=== PATIENT | male | born 1965 | race Caucasian/White ===

== ENCOUNTER → 2016-12-07 | Outpatient (CLI) | payer BC ==
--- NOTE | 2016-12-07 23:18 | XR ---
EXAMINATION TYPE: XR lumbar spine 2 or 3V DATE OF EXAM: 12/07/2016 COMPARISON: NONE HISTORY: 51-year-old male with low back pain for 2 months TECHNIQUE: 3 views FINDINGS: 5 lumbar type vertebral bodies. There is facet arthropathy in the mid to lower lumbar spine with mild multilevel endplate spondylosis. Very mild disc space narrowing at L5-S1. Alignment is maintained. V ertebral body heights are preserved. IMPRESSION: Facet arthropathy mid to lower lumbar spine. Mild multilevel degenerative disc disease. No vertebral compression collapse or malalignment.
== END | disposition home or self-care (01) ==
LOC: RADXRMAIN 19:21
PROVIDERS: ATTEND Family Medicine
DX: M51.36 Other intervertebral disc degeneration, lumbar region (principal); M46.86 Other specified inflammatory spondylopathies, lumbar region
CPT/HCPCS: 72100

== ENCOUNTER 2017-10-19 10:36 | Day surgery (SDC) | payer BC ==
[2017-10-17 09:24] VITALS: BMI 26.6
--- NOTE | 2017-10-19 07:09 | P.GSHP ---
History of Present Illness H&P Date: 10/19/17 CHIEF COMPLAINT: Inguinal hernia, left HISTORY OF PRESENT ILLNESS: The patient is a 52-year-old male who presents with a history of swelling and pain along the left groin. He's noted increased swelling including pain of the area. Now he presents for repair of his inguinal hernia. PAST MEDICAL HISTORY: Please see list. PAST SURGICAL HISTORY: Please see list. MEDICATIONS: Please see list. ALLERGIES: Please see list. SOCIAL HISTORY: No illicit drug use FAMILY HISTORY: No reports of Crohn disease or ulcerative colitis. REVIEW OF ORGAN SYSTEMS: CONSTITUTIONAL: No reports of fevers or chills. No reports of weight loss despite prior attempts. GI: Denies any blood in stools or constipation. PHYSICAL EXAM: VITAL SIGNS: Stable GENERAL: Well-developed pleasant male in no acute distress. HEENT: No scleral icterus. Extraocular movements grossly intact. Moist buccal mucosa. NECK: Supple without lymphadenopathy. CHEST: Unlabored respirations. Equal bilateral excursions. CARDIOVASCULAR: Regular rate and rhythm. Distal 2+ pulses. ABDOMEN: Soft, nondistended. No peritoneal signs. Palpable defect of the left groin. MUSCULOSKELETAL: No clubbing, cyanosis, or edema. ASSESSMENT: 1. Inguinal hernia, left PLAN: 1. Recommend proceeding with a robotic inguinal repair with mesh with possible bilateral approach. 2. Benefits and risks of surgical intervention was discussed including possibility of open technique. 3. DVT prophylaxis. 4. Antibiotic prophylaxis. Past Medical History Past Medical History: No Reported History History of Any Multi-Drug Resistant Organisms: None Reported Past Surgical History: Tonsillectomy Additional Past Surgical History / Comment(s): HYDROCELE REPAIR Past Anesthesia/Blood Transfusion Reactions: No Reported Reaction Smoking Status: Former smoker - Past Family History Father Family Medical History: Cancer Additional Family Medical History / Comment(s): ADRENAL GLAND CANCER Medications and Allergies Home Medications Medication Instructions Recorded Confirmed Type Atorvastatin [Lipitor] 20 mg PO DAILY 10/17/17 10/17/17 History Multivitamin [Men's Multi-Vitamin] 1 each PO DAILY 10/17/17 10/17/17 History [place]-3 Fatty Acids/Fish Oil [Fish 1 each PO DAILY 10/17/17 10/17/17 History Oil 1,000 mg Softgel] Allergies Allergy/AdvReac Type Severity Reaction Status Date / Time No Known Allergies Allergy Verified 10/17/17 08:52
[~2017-10-19 10:36] MED LIST: DEXAMETHASONE SOD PHOSPHATE 10 MG/ML 1 ML VIAL IV ONE; HEPARIN SODIUM,PORCINE 5,000 UNIT/ML 1 ML VIAL SQ ONE; IBUPROFEN IV 400 MG in SODIUM CHLORIDE 0.9% 250 ML IV ONE; LIDOCAINE 1% 20 ML VIAL (10MG/ML) FOR IV START INTRADERMA PRN; MIDAZOLAM 2 MG/2 ML VIAL IV PRN; ONDANSETRON 4 MG/2 ML VIAL IVP ONE; SCOPOLAMINE 1.5MG/72HR PATCH TRANSDERM ONE; ceFAZolin IN SWFI 2 GM/20 ML SYRINGE IVP ONE
[2017-10-19] MEDS: LACTATED RINGERS 1,000 ML IV SCH (11:28)
[2017-10-19] MEDS ORDERED: LIDOCAINE 1% INJ 10MG/ML (20 ML MDV) ONE (13:39)
[2017-10-19] MEDS ORDERED: SUCCINYLCHOLINE CHLORIDE 100 MG/5 ML SYR IV ONE (13:39)
[2017-10-19] MEDS ORDERED: fentaNYL (PF) 50 MCG/ML 2 ML AMP ONE (13:39)
[2017-10-19] MEDS ORDERED: PROPOFOL 10 MG/ML 20 ML VIAL IV ONE (13:39)
[2017-10-19] MEDS ORDERED: NEOSTIGMINE 1 MG/ML 10 ML VIAL ONE (13:39)
[2017-10-19] MEDS ORDERED: GLYCOPYRROLATE 0.2 MG/ML 2 ML VIAL ONE (13:39)
[2017-10-19] MEDS ORDERED: MIDAZOLAM 2 MG/2 ML VIAL ONE (13:39)
[2017-10-19] MEDS ORDERED: ROCURONIUM BROMIDE 10 MG/ML 10 ML VIAL IV ONE (13:39)
[2017-10-19] MEDS ORDERED: BUPIVACAINE (PF) 0.5% 30 ML VIAL SQ ONE (13:56)
--- NOTE | 2017-10-19 14:53 | P.PCN ---
Date of Procedure: 10/19/17 Preoperative Diagnosis: Left inguinal hernia Postoperative Diagnosis: Left direct inguinal hernia with lipoma Procedure(s) Performed: Excision of left inguinal lipoma, robotic repair of left inguinal hernia direct with mesh Anesthesia: CEZAR, local Surgeon: Aicha Russell Estimated Blood Loss (ml): 5 Pathology: other (Left inguinal hernia sac with lipoma) Condition: stable Disposition: same day Operative Findings: Left inguinal hernia with large fatty lipoma excised. Mesh repair performed. No recurrence noted along the right groin.
[2017-10-19] MEDS ORDERED: TAMSULOSIN 0.4 MG CAP.ER.24H PO STA ×2 (14:54→20:30)
[2017-10-19 15:35] VITALS: TEMP 97.2
[2017-10-19] MEDS: HYDROmorphone 0.5 MG/0.5 ML SYRINGE IVP PRN ×2 (15:40→15:45)
[2017-10-19] MEDS ORDERED: KETOROLAC 30 MG/ML 1 ML VIAL IVP ONE (16:06)
[2017-10-19] MEDS ORDERED: LACTATED RINGERS 1,000 ML IV ONE ×2 (16:12)
[2017-10-19 16:53] VITALS: RESP 18
[2017-10-19 18:00] VITALS: PULSE 88
[2017-10-19 18:25] VITALS: BP 144/88
--- NOTE | 2017-10-19 20:31 | P.PN ---
Progress Note - Text Progress Note Date: 10/19/17 I am notified the patient has trouble urinating. Double dose of Flomax recommended. Straight cath. May be discharged home. Flomax for 5 days at home. Strict instructions to return to the ER if unable to void in 8+ hrs.
[2017-10-19] MEDS ORDERED: TAMSULOSIN 0.4 MG CAP.ER.24H PO ONE (20:46)
--- NOTE | 2017-10-21 22:52 | P.OP ---
Date of Procedure: 10/19/17 Description of Procedure: SURGEON: MOIZ ESTES MD PREOPERATIVE DIAGNOSES: 1. History of right hydrocelectomy 2. Left inguinal pain 3. Hyperlipidemia POSTOPERATIVE DIAGNOSES: 1. History of right hydrocelectomy 2. Left inguinal pain 3. Hyperlipidemia 4. Left direct inguinal hernia with lipoma OPERATION: 1. Robotic assisted da [employer] [facility] laparoscopic left inguinal hernia repair with ventralight ST mesh, 11.4 cm. 2. Excision of left inguinal lipoma Anesthesia: GETA, local Estimated Blood Loss (ml): 5 Pathology: other (Left inguinal hernia sac with lipoma) Condition: stable Disposition: same day COMPLICATIONS: None. Operative Findings: 1. Left inguinal hernia with large fatty lipoma excised. 2. Mesh repair performed. No recurrence noted along the right groin. 3. Console time 24 minutes INDICATIONS: The patient is a 52-year-old gentleman who presents with history of left groin hernia. Now he presents for definitive surgical intervention. Laparoscopic versus open and robotic approaches were discussed. Benefits and risks including bleeding, infection, and injury to the vas deferens as well as sterility and chronic groin pain were reviewed. Placement of mesh was also described. Informed consent was obtained. DESCRIPTION: In the preoperative area, the patient was marked with indelible marker along the left groin. The patient was brought to the operating room and initially laid in supine position. After general induction, the abdomen had been prepped and draped in standard sterile fashion. Ioban draping was also placed. Prior to incision, a timeout protocol was confirmed with surgical team regarding patient's name including procedures to be performed and location along the left groin. Initial positioning for the robotic assisted ports were selected whereby 20 cm superior to the target anatomy, 0 degree 5 mm laparoscopic trocar entry was performed at the left upper quadrant. The abdomen was insufflated to 15 mmHg which he had tolerated well. Diagnostic laparoscopy demonstrated left inguinal hernia. Next, along the epigastrium, 8 mm robot trocar was placed. An 8-mm robotic trocar was placed under direct visualization at the right upper quadrant. The 5 mm port was exchanged for an 8 mm trocar. All trocars were positioned 8 to 10-cm apart from each other. The [employer] robot was primed, draped, prepared for docking along the left side of the patient. I then went to the kabuku console. The legislative assistant was at bedside for exchange of the robot arms and equipment. At the left groin, 2 cm direct inguinal hernia was identified. The hernia sac was evaginated whereby the peritoneum was scored using Endo scissors with cautery. Once completely reduced into the abdominal cavity, a lipoma was identified. The sac and lipoma was resected and then passed off for further pathological analysis. The size of the hernia defect was 3 cm with intraoperative films obtained. Using a 2-0 VLOC, the peritoneal defect of the left inguinal hernia site was closed using a pursestring suture. The defect was found to be completely closed with complete reduction of the left inguinal hernia was confirmed. As an onlay, an 11.[address] mesh by [employer] was cut in half and entered into the abdominal cavity via the 8 mm trocar. The mesh was tacked to the pelvis using 2-0 VLOC x 9-inch length sutures. The robot was undocked from the patient's bedside. I then rescrubbed into the case. Insufflation was released from the abdominal cavity and all instruments were removed from the abdominal cavity. Additional palm pressure was applied along the left groin as well as releasing any air along the scrotum and left groin. The rest of incisions were reapproximated using 4-0 Monocryl in a running subcuticular fashion. Local anesthetic was placed along the incision including for a groin block. Incisions were cleansed using dilute hydrogen peroxide. Liquid glue was applied to the skin. At the end of the procedure, the needle, sponge and instrument counts had been verified correct by the surgical services tech. The patient had tolerated the procedure well and was taken to the postanesthesia care unit in stable condition.
== END 2017-10-19 20:58 | disposition home or self-care (01) ==
LOC: OR 10:36
PROVIDERS: ATTEND Surgery Plastic and Reconstructive Surgery
DX: K40.90 Unilateral inguinal hernia, without obstruction or gangrene, not specified as recurrent (principal); E78.5 Hyperlipidemia, unspecified; G89.29 Other chronic pain; D17.6 Benign lipomatous neoplasm of spermatic cord; Z87.891 Personal history of nicotine dependence; Z79.899 Other long term (current) drug therapy
CPT/HCPCS: 88302; 49650; C1781; J2250; J1644; J1100; J2710; J2405; J2001; J3010; J1885; J0330; J2704; J1170; J0690

== ENCOUNTER → 2024-02-13 | Outpatient (CLI) | payer BC ==
--- NOTE | 2024-02-13 07:57 | MR ---
EXAMINATION TYPE: MR Prostate wo/w con DATE OF EXAM: 02/13/2024 7:25 AM COMPARISON: None. CLINICAL INDICATION: Male, 59 years old with history of R97.20 PSA ELEVATED; Elevated PSA TECHNIQUE: Multi-planar, multi-sequence imaging of the pelvis is performed prior to and following the uncomplicated administration of bolus intravenous gadolinium. CONTRAST: 8 Gadavist Interpretive Criteria: PI-RADS v2.1 SERUM PSA: -24 = 5.8 5- = 3.5 SURGICAL PATHOLOGY: No data available. FINDINGS: Prostatic dimensions: 5.0 x 7.0 x 5.8 cm. Ellipsoid Volume:106.29 (PSA density=0.05 ng/mL/mL) CENTRAL GLAND (Central and Transition Zones/CZ+TZ): Multiple bilateral, heterogenous appearing hypertrophic stromal nodules, without suspicious lesion. M edian lobe hypertrophy with protrusion into the base of the bladder. (PI-RADS 2) PERIPHERAL ZONE (PZ): Bilateral linear, indistinct wedgelike areas of low ADC, and low T2 signal, No evidence of masslike a bnormality, or localized perfusional hypervascularity, to further suggest a focus of clinically signi ficant prostate cancer. (PI-RADS 2) SEMINAL VESICLES (SV): Symmetric and unremarkable. PERIPROSTATIC TISSUES: Unremarkable. LYMPH NODES: No enlarged pelvic lymph node. REMAINING PELVIS: Bladder wall is within normal limits given distention. No abnormal free or organized intrapelvic fluid collection. No pathologic bowel dilation or mural thickening. No hernia visualized Small bilateral hydroceles. OSSEOUS STRUCTURES: No suspicious osseous abnormality. IMPRESSION: 1. No specific features for high-risk prostate cancer. Maximum PI-RADS score: 2. 2. Substantial BPH, estimated gland volume 106.29 mL. 3. No suspicious osseous lesion. No lymphadenopathy. No evidence of prostate adenocarcinoma involving the periprostatic tissues. [facility], , 02/13/2024 7:54 AM
== END ==
LOC: RADMRIMAIN 06:32
PROVIDERS: ATTEND Urology
DX: R97.20 Elevated prostate specific antigen [PSA] (principal)
CPT/HCPCS: 72197

== ENCOUNTER 2024-08-22 17:57 | Observation (INO) | payer BC ==
--- NOTE | 2024-08-22 18:39 | ED ---
General Adult HPI - General Chief complaint: Chest Pain Stated complaint: chest pain Time Seen by Provider: 08/22/24 18:12 Source: patient, RN notes reviewed, old records reviewed Mode of arrival: ambulatory Limitations: no limitations - History of Present Illness Initial comments: 59-year-old presenting for evaluation of chest pain intermittent over the past several days to weeks. Patient has central chest pain. He had an episode yesterday evening where this pain radiated to bilateral shoulders. This was while the patient was walking and was relieved by rest. He has no prior history of CAD. He is a non-smoker. He does have family history of premature coronary artery disease. Chest pain is minimal at the time my evaluation. No associated vomiting or diaphoresis. - Related Data Home Medications Medication Instructions Recorded Confirmed Atorvastatin [Lipitor] 20 mg PO DAILY 10/17/17 10/19/17 Multivitamin [Men's Multi-Vitamin] 1 each PO DAILY 10/17/17 10/19/17 [place]-3 Fatty Acids/Fish Oil [Fish 1 each PO DAILY 10/17/17 10/19/17 Oil 1,000 mg Softgel] Previous Rx's Medication Instructions Recorded HYDROcodone/APAP 5-325MG [[place] 1 tab PO Q4HR PRN 3 Days #18 tab 10/19/17 5-325] Tamsulosin [Flomax] 0.4 mg PO DAILY #7 cap 10/19/17 Allergies Allergy/AdvReac Type Severity Reaction Status Date / Time No Known Allergies Allergy Verified 08/22/24 18:02 Review of Systems ROS Statement: Those systems with pertinent positive or pertinent negative responses have been documented in the HPI. ROS Other: All systems not noted in ROS Statement are negative. Past Medical History Past Medical History: No Reported History History of Any Multi-Drug Resistant Organisms: None Reported Past Surgical History: Tonsillectomy Additional Past Surgical History / Comment(s): HYDROCELE REPAIR Past Anesthesia/Blood Transfusion Reactions: No Reported Reaction Past Psychological History: No Psychological Hx Reported Smoking Status: Never smoker Past Alcohol Use History: Rare Past Drug Use History: None Reported - Past Family History Father Family Medical History: Cancer Additional Family Medical History / Comment(s): ADRENAL GLAND CANCER General Exam Limitations: no limitations General appearance: alert, in no apparent distress Head exam: Present: atraumatic, normocephalic Eye exam: Present: normal appearance, PERRL ENT exam: Present: normal exam Neck exam: Present: normal inspection. Absent: tenderness, meningismus Respiratory exam: Present: normal lung sounds bilaterally. Absent: respiratory distress, wheezes Cardiovascular Exam: Present: regular rate, normal rhythm GI/Abdominal exam: Present: soft. Absent: distended, tenderness, guarding Extremities exam: Present: normal inspection, normal capillary refill Neurological exam: Present: alert, oriented X3, CN II-XII intact. Absent: motor sensory deficit Psychiatric exam: Present: normal affect, normal mood Skin exam: Present: warm, dry, intact. Absent: cyanosis, diaphoretic Course Vital Signs 08/22/24 08/22/24 08/22/24 18:00 18:02 18:36 Temperature 97.6 F Pulse Rate 70 66 Respiratory 18 20 20 Rate Blood Pressure 172/99 146/86 O2 Sat by Pulse 98 98 Oximetry - Reevaluation(s) Reevaluation #1: 08/22/24 19:49 Patient reevaluated, chest pain-free Medical Decision Making - Medical Decision Making Was pt. sent in by a medical professional or institution (, PA, SHIPPING AND RECEIVING COORDINATOR, urgent care, hospital, or retirement...) When possible be specific @ -No Did you speak to anyone other than the patient for history (EMS, parent, family, police, friend...)? What history was obtained from this source @ -No Did you review nursing and triage notes (agree or disagree)? Why? @ -I reviewed and agree with nursing and triage notes Were old charts reviewed (outside hosp., previous admission, EMS record, old EKG, old radiological studies, urgent care reports/EKG's, retirement records)? Report findings @ -No old charts were reviewed M differential chest pain EKG interpreted by me (3pts min.). @Sinus rhythm rate of 72, ME interval 190, QRS duration 90, QTc 420, no ST segment elevation. X-rays interpreted by me (1pt min.). @ -Chest x-ray is negative for acute cardiopulmonary findings, normal mediastinum, no pneumothorax, no consolidated pneumonia CT interpreted by me (1pt min.). @ -None done U/S interpreted by me (1pt. min.). @ -None done What testing was considered but not performed or refused? (CT, X-rays, U/S, labs)? Why? @ -None What meds were considered but not given or refused? Why? @ -None Did you discuss the management of the patient with other professionals (professionals i.e. , PA, SHIPPING AND RECEIVING COORDINATOR, lab, RT, psych nurse, delinquency prevention social worker, erecting crane operator, te acher, aoc operations intelligence officer, assistant case manager)? Give summary @ -Delia covering for [facility] 59-year-old male with exertional chest pain relieved by rest. Patient did have an episode that was Was smoking cessation discussed for >3mins.? @ -No Was critical care preformed (if so, how long)? @ -No Were there social determinants of health that impacted care today? How? (Homelessness, low income, unemployed, alcoholism, drug addiction, transportation, low edu. Level, literacy, decrease access to med. care, [place] [facility], rehab)? @ -No Was there de-escalation of care discussed even if they declined (Discuss DNR or withdrawal of care, Hospice)? DNR status @ -No What co-morbidities impacted this encounter? (DM, HTN, Smoking, COPD, CAD, Cancer, CVA, ARF, Chemo, Hep., AIDS, mental health diagnosis, sleep apnea, morb id obesity)? @ -Hyperlipidemia Was patient admitted / discharged? Hospital course, mention meds given and route, prescriptions, significant lab abnormalities, going to OR and other pertinent info. @Radiating to the bilateral shoulders. No prior history of CAD. EKG is sinus without ischemic changes. Chest x-ray is clear. Normal CBC, normal CMP, negative initial troponin. Given the history and risk factors he will be observed for serial cardiac enzymes, telemetry, cardiology consultation. Undiagnosed new problem with uncertain prognosis? @ -No Drug Therapy requiring intensive monitoring for toxicity (Heparin, Nitro, Insulin, Cardizem)? @ -No Were any procedures done? @ -No Diagnosis/symptom? @ -Chest pain, ACS rule out Acute, or Chronic, or Acute on Chronic? @Acute Uncomplicated (without systemic symptoms) or Complicated (systemic symptoms)? @ -Default Side effects of treatment? @ -No Exacerbation, Progression, or Severe Exacerbation? @ -No Poses a threat to life or bodily function? How? (Chest pain, USA, IA, pneumonia, PE, COPD, DKA, ARF, appy, cholecystitis, CVA, Diverticulitis, Homicidal, Suicidal, threat to staff... and all critical care pts) @ -Yes, ACS - Lab Data Result diagrams: 08/22/24 18:23 08/22/24 18:23 Lab Results 08/22/24 08/22/24 08/22/24 Range/Units 18:23 18:23 18:23 WBC 4.79 (4.50-10.00) 10*3/uL RBC 5.38 (4.40-5.60) 10*6/uL Hgb 14.9 (13.0-17.0) g/dL Hct 43.6 (39.6-50.0) % MCV 81.0 (80.0-97.0) fL MCH 27.7 (27.0-32.0) pg MCHC 34.2 (32.0-37.0) g/dL Plt Count 179 (140-440) 10*3/uL MPV 8.6 L (9.5-12.2) fL Immature Gran % (Auto) 0.2 % Neutrophils % 56.6 % Lymphocytes % 32.8 % Monocytes % 8.1 % Eosinophils % 2.1 % Basophils % 0.2 % Immature Gran # 0.01 (0.00-0.04) 10*3/uL Neutrophils # 2.71 (1.80-7.70) 10*3/uL Lymphocytes # 1.57 (0.90-5.00) 10*3/uL Monocytes # 0.39 (0.20-1.00) 10*3/uL Eosinophils # 0.10 (0.04-0.35) 10*3/uL Basophils # 0.01 (0.00-0.10) 10*3/uL PT 11.4 (10.0-12.5) sec INR 1.0 (<1.2) APTT 23.9 (22.0-30.0) sec D-Dimer <0.17 (<0.60) mg/L FEU Sodium 142 (137-145) mmol/L Potassium 4.7 (3.5-5.1) mmol/L Chloride 102 (98-107) mmol/L Carbon Dioxide 27 (22-30) mmol/L Anion Gap 13 mmol/L BUN 25 H (9-20) mg/dL Creatinine 1.15 (0.66-1.25) mg/dL Est GFR (CKD-EPI)AfAm 80 (>60 ml/min/1.73 sqM) Est GFR (CKD-EPI)NonAf 69 (>60 ml/min/1.73 sqM) Glucose 115 H (74-99) mg/dL Calcium 10.4 H (8.4-10.2) mg/dL Magnesium 2.1 (1.6-2.3) mg/dL Total Bilirubin 1.4 H (0.2-1.3) mg/dL AST 35 (17-59) U/L ALT 48 (4-49) U/L Alkaline Phosphatase 44 (38-126) U/L Troponin I (0.000-0.034) ng/mL Total Protein 7.1 (6.3-8.2) g/dL Albumin 5.0 (3.5-5.0) g/dL Lipase 174 (23-300) U/L 08/22/ Range/Units 18:23 WBC (4.50-10.00) 10*3/uL RBC (4.40-5.60) 10*6/uL Hgb (13.0-17.0) g/dL Hct (39.6-50.0) % MCV (80.0-97.0) fL MCH (27.0-32.0) pg MCHC (32.0-37.0) g/dL Plt Count (140-440) 10*3/uL MPV (9.5-12.2) fL Immature Gran % (Auto) % Neutrophils % % Lymphocytes % % Monocytes % % Eosinophils % % Basophils % % Immature Gran # (0.00-0.04) 10*3/uL Neutrophils # (1.80-7.70) 10*3/uL Lymphocytes # (0.90-5.00) 10*3/uL Monocytes # (0.20-1.00) 10*3/uL Eosinophils # (0.04-0.35) 10*3/uL Basophils # (0.00-0.10) 10*3/uL PT (10.0-12.5) sec INR (<1.2) APTT (22.0-30.0) sec D-Dimer (<0.60) mg/L FEU Sodium (137-145) mmol/L Potassium (3.5-5.1) mmol/L Chloride (98-107) mmol/L Carbon Dioxide (22-30) mmol/L Anion Gap mmol/L BUN (9-20) mg/dL Creatinine (0.66-1.25) mg/dL Est GFR (CKD-EPI)AfAm (>60 ml/min/1.73 sqM) Est GFR (CKD-EPI)NonAf (>60 ml/min/1.73 sqM) Glucose (74-99) mg/dL Calcium (8.4-10.2) mg/dL Magnesium (1.6-2.3) mg/dL Total Bilirubin (0.2-1.3) mg/dL AST (17-59) U/L ALT (4-49) U/L Alkaline Phosphatase (38-126) U/L Troponin I <0.012 (0.000-0.034) ng/mL Total Protein (6.3-8.2) g/dL Albumin (3.5-5.0) g/dL Lipase (23-300) U/L Disposition Clinical Impression: Chest pain Disposition: ADMITTED IP TO THIS HOSP Condition: Stable Is patient prescribed a controlled substance at d/c from ED?: No Referrals: Sherita Christie DO [Primary Care Provider] - 1-2 days Time of Disposition: 19:49
[2024-08-22 18:40] LABS: Basophils # (A) 0.01 10*3/uL (0.00-0.10); Basophils % (A) 0.2 %; Eosinophils % (A) 2.1 %; HCT 43.6 % (39.6-50.0); HGB 14.9 g/dL (13.0-17.0); Lymphocytes # (A) 1.57 10*3/uL (0.90-5.00); Lymphocytes % (A) 32.8 %; MCH 27.7 pg (27.0-32.0); MCHC 34.2 g/dL (32.0-37.0); Mean Platelet Volume 8.6 fL (9.5-12.2); Monocytes # (A) 0.39 10*3/uL (0.20-1.00); Monocytes % (A) 8.1 %; Neutrophils # (A) 2.71 10*3/uL (1.80-7.70); Neutrophils % (A) 56.6 %; Platelet Count 179 10*3/uL (140-440); RBC 5.38 10*6/uL (4.40-5.60); RDW 12.7 % (11.5-14.5); WBC 4.79 10*3/uL (4.50-10.00)
--- NOTE | 2024-08-22 18:49 | XR ---
EXAMINATION TYPE: XR chest 2V DATE OF EXAM: 08/22/2024 6:46 PM COMPARISON: None. CLINICAL INDICATION: Male, 59 years old with history of Chest Pain: Shortness of breath TECHNIQUE: XR chest 2V views of the chest are obtained. FINDINGS: Scattered senescent parenchymal changes noted. Hyperinflation compatible with COPD. No evidence for infiltrate. No evidence for atelectasis. Heart size is stable. Mediastinal structures are stable and grossly unremarkable. No evidence for hilar prominence. Degenerative changes dorsal spine. IMPRESSION: 1. No evidence for acute pulmonary disease. [facility], , 08/22/2024 6:47 PM
[2024-08-22 18:54] LABS: Partial Thromboplastin Time 23.9 sec (22.0-30.0); Prothrombin Time 11.4 sec (10.0-12.5)
[2024-08-22 18:59] LABS: ALT 48 U/L (4-49); AST 35 U/L (17-59); African American GFR (CKD) 80 (>60 ml/min/1.73 sqM); Alkaline Phosphatase 44 U/L (38-126); Anion Gap 13 mmol/L; Blood Urea Nitrogen 25 mg/dL (9-20); Calcium 10.4 mg/dL (8.4-10.2); Carbon Dioxide 27 mmol/L (22-30); Chloride 102 mmol/L (98-107); Glucose 115 mg/dL (74-99); Lipase 174 U/L (23-300); Magnesium 2.1 mg/dL (1.6-2.3); Non-African American GFR(CKD) 69 (>60 ml/min/1.73 sqM); Potassium 4.7 mmol/L (3.5-5.1); Sodium 142 mmol/L (137-145); Total Bilirubin 1.4 mg/dL (0.2-1.3); Total Protein 7.1 g/dL (6.3-8.2)
[2024-08-22] MEDS ORDERED: NALOXONE 0.4 MG/ML 1 ML VIAL IV PRN (19:46)
[2024-08-22] MEDS ORDERED: ACETAMINOPHEN TAB 325 MG TAB PO PRN (19:46)
[2024-08-22] MEDS: ASPIRIN 325 MG TAB PO STA (20:03)
--- NOTE | 2024-08-23 11:11 | P.HPIM ---
History of Present Illness This is a pleasant 59 years old male with past medical history of hyperlipidemia with no other significant history Presents because of chest pain about 1 month in duration, currently rated about 20/10 he states that at 2 times it become more intense severe radiating to the left arm associated with lightheadedness, this lasts about 10 to 15 seconds before it goes away. No precipitating or relieving factors, it felt like tightness in the middle of the chest. No coughing no dyspnea No specific GI or symptoms. No headache dizziness weakness numbness He denies smoking alcohol or illicit drugs. Hemodynamically stable and afebrile, mildly bradycardic. Labs including CBC, BMP LFT were unremarkable. Troponin x 3 are negative less than 0.012. Lipase negative at 174. D-dimer negative less than 0. 1 7 Chest x-ray showing no acute cardiopulmonary process EKG showing sinus rhythm at [address]-T changes Patient on aspirin 325 mg Review of Systems Review of systems CONSTITUTIONAL: No fever, no malaise, no fatigue. HEENT: No recent visual problems or hearing problems. Denied any sore throat. CARDIOVASCULAR: No orthopnea, PND, no palpitations, no syncope. PULMONARY: No shortness of breath, no cough, no hemoptysis. GASTROINTESTINAL: No diarrhea, no nausea, no vomiting, no abdominal pain. Normoactive bowel sounds. NEUROLOGICAL: No headaches, no weakness, no numbness. HEMATOLOGICAL: Denies any bleeding or petechiae. GENITOURINARY: Denies any burning micturition, frequency, or urgency. MUSCULOSKELETAL/RHEUMATOLOGICAL: Denies any joint pain, swelling, or any muscle pain. ENDOCRINE: Denies any polyuria or polydipsia. Past Medical History Past Medical History: No Reported History History of Any Multi-Drug Resistant Organisms: None Reported Past Surgical History: Tonsillectomy Additional Past Surgical History / Comment(s): HYDROCELE REPAIR Past Anesthesia/Blood Transfusion Reactions: No Reported Reaction Past Psychological History: No Psychological Hx Reported Smoking Status: Never smoker Past Alcohol Use History: Rare Past Drug Use History: None Reported - Past Family History Father Family Medical History: Cancer Additional Family Medical History / Comment(s): ADRENAL GLAND CANCER Medications and Allergies Home Medications Medication Instructions Recorded Confirmed Type Atorvastatin [Lipitor] 20 mg PO HS 10/17/08/22/24 History [place]-3 Acid Ethyl Esters [Lovaza] 2 gm PO BID 08/22/24 08/22/24 History [place] 500 mg PO DAILY 08/22/24 08/22/24 History Allergies Allergy/AdvReac Type Severity Reaction Status Date / Time amoxicillin Allergy Rash/Hives, Verified 08/22/24 20:12 headache Physical Exam Vitals: Vital Signs Temp Pulse Resp BP Pulse Ox 08/23/24 11:07 98.4 F 64 16 130/78 98 08/23/24 07:30 56 L 16 130/75 97 08/23/24 06:23 98.4 F 58 L 18 124/79 97 08/23/24 04:03 56 L 18 111/74 98 08/23/24 02:00 56 L 18 109/68 98 08/22/24 23:34 66 18 123/76 98 08/22/24 22:00 70 18 133/79 98 08/22/24 20:17 68 18 146/81 98 08/22/24 18:36 20 08/22/24 18:02 66 20 146/86 98 08/22/24 18:00 97.6 F 70 18 172/99 98 Intake and Output 08/22/24 08/23/24 08/23/24 22:59 06:59 14:59 Other: Weight 78.471 kg GENERAL: The patient is alert and oriented x3, not in any acute distress. Well developed, well nourished. HEENT: Pupils are round and equally reacting to light. EOMI. No scleral icterus. No conjunctival pallor. Normocephalic, atraumatic. No pharyngeal erythema. No thyromegaly. CARDIOVASCULAR: S1 and S2 present. No murmurs, rubs, or gallops. PULMONARY: Chest is clear to auscultation, no wheezing , no crackles. ABDOMEN: Soft, nontender, nondistended, normoactive bowel sounds. No palpable organomegaly. MUSCULOSKELETAL: No joint swelling or deformity. EXTREMITIES: No cyanosis, clubbing, or pedal edema. NEUROLOGICAL: Gross neurological examination did not reveal any focal deficits. SKIN: No rashes. no petechiae. Results CBC & Chem 7: 08/22/24 18:23 08/22/24 18:23 Labs: Abnormal Lab Results - Last 24 Hours (Table) 04/25/25 04/25/25 Range/Units 18:23 18:23 MPV 8.6 L (9.5-12.2) fL BUN 25 H (9-20) mg/dL Glucose 115 H (74-99) mg/dL Calcium 10.4 H (8.4-10.2) mg/dL Total Bilirubin 1.4 H (0.2-1.3) mg/dL Assessment and Plan Assessment: Chest pain rule out cardiac causes Hyperlipidemia Plan: Will do serial troponin Continue with aspirin Cardiology consult GI and DVT prophylaxis
[2024-08-23 11:40] VITALS: RESP 14
--- NOTE | 2024-08-23 12:38 | P.CRDCN ---
History of Present Illness Consult date: 08/23/24 History of present illness: HPI: The patient is a 59-year-old male with a history of dyslipidemia, managed with Lipitor and omega-3 fatty acids. He presented with on-and-off substantial chest pressure and a bruising-like sensation, rated 2 to 3 out of 10 in intensity. These episodes occurred two times over the last month, lasting less than a minute each, with radiation to the left arm, some weakness, and lightheadedness, but no significant presyncope or syncope. There is no particular relation to activity or rest. The patient is physically active and reports that activity does not exacerbate the symptoms. Pertinent Vitals: - Blood pressure: 137/78 mmHg - Heart rate: 64 bpm Pertinent cardiac Labs: - Hemoglobin: 14 g/dL - BUN: 25 mg/dL - Creatinine: 1.15 mg/dL - Troponin (times 3): Negative Pertinent cardiac testing: - EK07/2024: Sinus rhythm, heart rate 72 bpm, normal QTc, no significant ST-T wave changes concerning for ischemia. - Chest X-ray: 07/2024: No evidence of significant consolidation or congestion, not suggestive of pneumonia or CHF. REVIEW OF SYSTEMS: 14 point review of system is negative except what is mentioned above in HPI. PHYSICAL EXAMINATION: Neck: Brisk carotid upstroke, no jugular venous distention. Lungs: Clear to auscultation. Heart: Regular rate and rhythm, S1-S2, no murmur or rub. Abdomen: Soft, nontender, positive bowel sounds. Extremities: No edema, intact distal pulses. Neuro: Alert, oriented, no focal deficits. Detailed neuro exam was not performed. ASSESSMENT: # Atypical chest pain, ruled out acute coronary syndrome. # Dyslipidemia. PLAN: # Start aspirin 81 mg daily. # Continue Lipitor. # Recommend outpatient echocardiogram and stress test. # Follow up with cardiology. Past Medical History Past Medical History: No Reported History History of Any Multi-Drug Resistant Organisms: None Reported Past Surgical History: Tonsillectomy Additional Past Surgical History / Comment(s): HYDROCELE REPAIR Past Anesthesia/Blood Transfusion Reactions: No Reported Reaction Past Psychological History: No Psychological Hx Reported Smoking Status: Never smoker Past Alcohol Use History: Rare Past Drug Use History: None Reported - Past Family History Father Family Medical History: Cancer Additional Family Medical History / Comment(s): ADRENAL GLAND CANCER Medications and Allergies Home Medications Medication Instructions Recorded Confirmed Type Atorvastatin [Lipitor] 20 mg PO HS 10/17/17 08/22/24 History [place]-3 Acid Ethyl Esters [Lovaza] 2 gm PO BID 08/22/24 08/22/24 History [place] 500 mg PO DAILY 08/22/24 08/22/24 History Allergies Allergy/AdvReac Type Severity Reaction Status Date / Time amoxicillin Allergy Rash/Hives, Verified 08/22/24 20:12 headache Physical Exam Vitals: Vital Signs Temp Pulse Pulse Resp BP BP Pulse Ox 08/23/24 11:25 97.4 F L 62 14 137/78 100 08/23/24 11:07 98.4 F 64 16 130/78 98 08/23/24 07:30 56 L 16 130/75 97 08/23/24 06:23 98.4 F 58 L 18 124/79 97 08/23/24 04:03 56 L 18 111/74 98 08/23/24 02:00 56 L 18 109/68 98 08/22/24 23:34 66 18 123/76 98 08/22/24 22:00 70 18 133/79 98 08/22/24 20:17 68 18 146/81 98 08/22/24 18:36 20 08/22/24 18:02 66 20 146/86 98 08/22/24 18:00 97.6 F 70 18 172/99 98 Intake and Output 08/22/24 08/23/24 08/23/24 22:59 06:59 14:59 Other: Voiding Method Toilet Weight 78.471 kg Results 08/22/24 18:23 08/22/24 18:23 Cardiac Enzymes 08/22/24 08/22/24 08/22/24 Range/Units 18:23 18:23 22:06 AST 35 (17-59) U/L Troponin I <0.012 <0.012 (0.000-0.034) ng/mL 08/23/24 Range/Units 01:20 AST (17-59) U/L Troponin I <0.012 (0.000-0.034) ng/mL Coagulation 08/22/24 Range/Units 18:23 PT 11.4 (10.0-12.5) sec APTT 23.9 (22.0-30.0) sec CBC 08/22/24 Range/Units 18:23 WBC 4.79 (4.50-10.00) 10*3/uL RBC 5.38 (4.40-5.60) 10*6/uL Hgb 14.9 (13.0-17.0) g/dL Hct 43.6 (39.6-50.0) % Plt Count 179 (140-440) 10*3/uL Comprehensive Metabolic Panel 08/22/24 Range/Units 18:23 Sodium 142 (137-145) mmol/L Potassium 4.7 (3.5-5.1) mmol/L Chloride 102 (98-107) mmol/L Carbon Dioxide 27 (22-30) mmol/L BUN 25 H (9-20) mg/dL Creatinine 1.15 (0.66-1.25) mg/dL Glucose 115 H (74-99) mg/dL Calcium 10.4 H (8.4-10.2) mg/dL AST 35 (17-59) U/L ALT 48 (4-49) U/L Alkaline Phosphatase 44 (38-126) U/L Total Protein 7.1 (6.3-8.2) g/dL Albumin 5.0 (3.5-5.0) g/dL Current Medications Generic Name Dose Route Start Last Admin Trade Name Freq PRN Reason Stop Dose Admin Acetaminophen 650 mg 08/22/24 19:46 Acetaminophen Tab 325 Mg Tab PO Q6HR PRN Mild Pain or Fever > 100.5 Aspirin 81 mg 08/24/24 09:00 Aspirin 81 Mg PO DAILY [facility] Atorvastatin Calcium 20 mg 08/23/24 21:00 Atorvastatin 20 Mg Tab PO HS [facility] Famotidine 20 mg 08/23/24 21:00 Famotidine 20 Mg/2 Ml Vial IV Q12HR [facility] Heparin Sodium (Porcine) 5,000 unit 08/23/24 21:00 Heparin Sodium,Porcine 5,000 Unit/Ml 1 Ml Vial SQ Q12HR [facility] Naloxone HCl 0.2 mg 08/22/24 19:46 Naloxone 0.4 Mg/Ml 1 Ml Vial IV Q2M PRN Opioid Reversal Intake and Output 08/22/24 08/23/24 08/23/24 22:59 06:59 14:59 Other: Voiding Method Toilet Weight 78.471 kg 08/22/24 18:23 08/22/24 18:23
[2024-08-23 13:49] VITALS: BP 132/77; PULSE 71; TEMP 98.5
[2024-08-23 14:53] LABS: Magnesium 2.3 mg/dL (1.6-2.3)
[2024-08-23 15:04] LABS: NT-Pro-B-Type Natriuretic Pept <20 pg/mL
[2024-08-23] MEDS ORDERED: ATORVASTATIN 20 MG TAB PO SCH (21:00)
[2024-08-23] MEDS ORDERED: HEPARIN SODIUM,PORCINE 5,000 UNIT/ML 1 ML VIAL SQ SCH (21:00)
[2024-08-23] MEDS ORDERED: FAMOTIDINE 20 MG/2 ML VIAL IV SCH (21:00)
[2024-08-24 07:07] LABS: Chol/HDL Ratio 2.75 Ratio; LDL Cholesterol,Calculated 72.3 mg/dL (0.0-131.0)
[2024-08-24] MEDS ORDERED: ASPIRIN 81 MG PO SCH (09:00)
== END 2024-08-23 16:26 | disposition home or self-care (01) ==
LOC: EC 17:57 → 6NMEDSUR 19:47
PROVIDERS: ADMIT Hospitalist; ATTEND Hospitalist
DX: R07.89 Other chest pain (principal); E78.5 Hyperlipidemia, unspecified; R00.1 Bradycardia, unspecified; M25.512 Pain in left shoulder; M79.602 Pain in left arm; M25.511 Pain in right shoulder; Z79.899 Other long term (current) drug therapy; Z88.0 Allergy status to penicillin; Z82.49 Family history of ischemic heart disease and other diseases of the circulatory system
CPT/HCPCS: 99285; 36415; 93005; 85379; 83880; 80061; 80053; 84443; 83690; 83735 ×2; 84484 ×2; 85025; 85610; 85730; 83036; 71046; G0378 ×2